=== PATIENT | female | born 1965 | race Caucasian/White ===

== ENCOUNTER → 2017-11-25 09:35 | Outpatient (CLI) | payer BC, SELFPAY | PROVIDERS: Visit Provider Family Medicine | DX: B00.89 Other herpesviral infection (principal) | CPT/HCPCS: 87070; 87077; 87147; 87205; 87252 ==

== ENCOUNTER 2021-08-18 12:17 | Emergency (ER) | payer BC, SELFPAY ==
[2021-08-18] VITALS (9 sets, daily range): BP systolic 119–163; BP diastolic 70–86; PULSE 70–101; RESP 12–24; TEMP 36.6; O2SAT 94–100; BMI 22.4
--- NOTE | 2021-08-18 12:37 | DI.RAD.S_ITS ---
PROCEDURE: XR CHEST 1V INDICATIONS: chest pain TECHNIQUE: One view of the chest was acquired. COMPARISON: None. FINDINGS: Surgical changes and devices: None. Lungs and pleura: Lungs are clear. No pleural effusions or pneumothorax. Mediastinum: Mediastinal contours appear normal. Heart size is normal. Bones and chest wall: No suspicious bony lesions. Overlying soft tissues appear unremarkable. IMPRESSION: No acute cardiopulmonary abnormality. Dictated by: Froilan Contreras M.D. on 08/18/2021 at 11:59 Approved by: Froilan Contreras M.D. on 08/18/2021 at 11:59
[2021-08-18 13:11] LABS: Alanine Aminotransferase 31 IU/L (<35); Albumin 4.6 g/dL (3.5-5.0); Albumin Globulin Ratio 1.6 (1.0-2.8); Alkaline Phosphatase 87 U/L (38-126); Aspartate Aminotransferase 33 IU/L (14-36); BUN Creatinine Ratio 19.1 (6-22); Bilirubin Total 0.8 mg/dL (0.2-1.3); Blood Urea Nitrogen 13 mg/dL (7-17); Calcium 9.3 mg/dL (8.4-10.2); Carbon Dioxide 28 mmol/L (22-32); Chloride 103 mmol/L (98-107); Creatine Kinase 46 U/L (30-135); Estimated Glomerular Filt Rate > 60 mL/min (>60); Globulin 2.9 g/dL (1.7-4.1); Glucose 124 mg/dL (70-100); Lipase 89 U/L (23-300); Magnesium 2.2 mg/dL (1.6-2.3); Potassium 3.8 mmol/L (3.4-5.1); Sodium 138 mmol/L (137-145); Total Protein 7.5 g/dL (6.3-8.2)
[2021-08-18 13:24] LABS: HEMOLYSIS < 15 (0-50); Troponin I < 0.012 ng/mL (0.01-0.034)
[2021-08-18 13:37] LABS: Add Manual Diff / Slide Review NO; Basophils Absolute Auto 0 /uL (0-100); Basophils Percent Auto 0.8 % (0-2); Eosinophils Absolute Auto 100 /uL (0-450); Eosinophils Percent Auto 1.7 % (2-4); Hematocrit 40.7 % (36-46); Lymphocytes Absolute Auto 1800 /uL (1100-4500); Lymphocytes Percent Auto 30.8 % (25-40); Mean Corpuscular HGB Conc 34.4 % (30-36); Mean Corpuscular Hemoglobin 31.2 PG (26-34); Mean Corpuscular Volume 90.7 fL (80-100); Monocytes Absolute Auto 400 /uL (0-900); Monocytes Percent Auto 6.4 % (3-14); Neutrophils Absolute Auto 3500 /uL (1500-7000); Neutrophils Percent Auto 60.3 % (50-75); Platelet Count 365 X10^3/uL (150-400); Red Blood Cell Count 4.49 X10^6/uL (4.0-5.2); Red Cell Distribution Width 13.4 % (11.6-14.8); White Blood Cell Count 5.9 X10^3/uL (4.5-11.0)
[2021-08-18 14:04] LABS: COVID19 -Nasal RAPID Negative (Negative)
--- NOTE | 2021-08-18 14:23 | ED_ITS ---
HPI - Chest Pain <STERLING Velazquez - Last Filed: 08/18/21 15:21> General Chief Complaint: Chest Pain Stated Complaint: Sharp Pain, Chest Lt Side Time Seen by Provider: 08/18/21 13:57 Source: patient and family Mode of arrival: Family Vehicle Limitations: no limitations History of Present Illness HPI narrative: 56-year-old nonsmoker presents to the emergency department with complaints left chest pain that radiates to left shoulder intermittently over the last couple of hours. She reports that she felt a little clammy when the pain began but has subsided. Each episode lasted for a short amount of time but returned. Patient denies any history cardiac issues. 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 Patient reports bilateral shooting pains down her arms intermittently while sleeping. Patient denies any trauma to her chest neck or back. Related Data Home Medications Medication Instructions Recorded Confirmed ibuprofen 200 mg capsule (Advil 200 mg PO ##0 04/07/16 Liqui-Gel) estradiol 0.5 mg tablet 0.5 mg PO DAILY 11/25/17 11/25/17 Previous Rx's Medication Instructions Recorded acyclovir 800 mg tablet 800 mg PO 5XD #50 tabs 11/25/17 cephalexin 500 mg capsule (Keflex) 500 mg PO TID #15 caps 11/25/17 methocarbamol 500 mg tablet 500 mg PO QID PRN Neck pain #14 08/18/21 tabs Allergies Allergy/AdvReac Type Severity Reaction Status Date / Time penicillin G Allergy Rash Verified 11/25/17 08:56 Review of Systems <STERLING Velazquez - Last Filed: 08/18/21 15:21> Review of Systems Narrative: Narrative: GENERAL: Denies chills, fatigue, fever, sweats. HEENT: Denies sinus pain, ear pain, sore throat, difficulty swallowing, dizziness. RESPIRATORY: Denies dyspnea, cough, wheezing, sputum. CARDIOVASCULAR: Denies palpitations, edema. GASTROINTESTINAL: Denies nausea, vomiting, abdominal pain, diarrhea, constipation. : Denies dysuria, frequency, incontinence, hematuria, urinary retention, flank pain. MUSCULOSKELETAL: Denies weakness, joint pain, or bony pain. SKIN: Denies rash, skin lesions, or pruritis. NEUROLOGIC: Denies weakness, dizziness, headache, numbness. PSYCHIATRIC: No concerning psychosocial issues. Patient History <STERLING Velazquez - Last Filed: 08/18/21 15:21> Social History Smoking Status: Never smoker Smoking Status: Never smoker Exam <STERLING Velazquez - Last Filed: 08/18/21 15:21> Narrative Exam Narrative: Exam Narrative: GENERAL: This is a well-nourished, well-developed patient, in no acute distress HEAD: Atraumatic. Normocephalic. EYES: Pupils equal round and reactive. Extraocular motions intact. No injection or drainage. ENT: Nose without bleeding, purulent drainage. Airway patent. NECK: Trachea midline. No JVD or lymphadenopathy. Tension noted. Positive Spurling's to left arm with head tilted to right. CARDIOVASCULAR: Regular rate and rhythm, peripheral pulses intact, cap refill <2 sec. RESPIRATORY: Breath sounds equal and clear bilaterally. No wheezes, rales, or rhonchi. No cough. No increased respiratory effort. No accessory muscle use. GASTROINTESTINAL: Abdomen soft, non-tender, nondistended without guarding or rebound. No suprapubic pain. No hepato-splenomegaly, or palpable masses. EXTREMITIES: Normal range of motion, no clubbing or edema. Neurovascularly intact. Patient is very tense in her neck and upper shoulder region. NEURO: A&O x 3. SKIN: Warm, dry, no rashes or lesions noted. Initial Vital Signs Initial Vital Signs: Vital Signs Pulse Rate 101 H 08/18/21 12:27 Respiratory Rate 19 08/18/21 12:27 Blood Pressure 163/82 H 08/18/21 12:27 Pulse Oximetry 94 08/18/21 12:27 Reviewed <Emely Parker DO - Last Filed: 08/20/21 13:23> Initial Vital Signs Initial Vital Signs: Vital Signs Pulse Rate 101 H 08/18/21 12:27 Respiratory Rate 19 08/18/21 12:27 Blood Pressure 163/82 H 08/18/21 12:27 Pulse Oximetry 94 08/18/21 12:27 Course <STERLING Velazquez - Last Filed: 08/18/21 15:21> Orders Ordered: ED Orders 08/18/21 12:30 Complete Blood Count AUTO DIFF Stat Comprehensive Metabolic Panel Stat Lipase Stat Magnesium Stat Troponin & CK Cardiac Panel Stat 08/18/21 12:37 XR chest 1V Stat EKG-12 Lead Stat 08/18/21 12:50 COVID19 -Nasal RAPID/Pre-Proc Stat Vital Signs Vital signs: Vital Signs - 8 hr 08/18/21 12:32 08/18/21 12:27 08/18/21 12:27 Temperature 97.8 F Pulse Rate 91 H 101 H Respiratory Rate 18 19 Blood Pressure 147/86 H 163/82 H Pulse Oximetry 99 94 Oxygen Delivery Method Room Air 08/18/21 12:30 08/18/21 12:30 Temperature Pulse Rate 90 Respiratory Rate 17 Blood Pressure 147/86 H Pulse Oximetry 100 Oxygen Delivery Method <Emely Parker DO - Last Filed: 08/20/21 13:23> Orders Ordered: ED Orders 08/18/21 12:30 Complete Blood Count AUTO DIFF Stat Comprehensive Metabolic Panel Stat Lipase Stat Magnesium Stat Troponin & CK Cardiac Panel Stat 08/18/21 12:37 XR chest 1V Stat EKG-12 Lead Stat 08/18/21 12:50 COVID19 -Nasal RAPID/Pre-Proc Stat Vital Signs Vital signs: Vital Signs - 8 hr 08/18/21 12:32 08/18/21 12:27 08/18/21 12:27 Temperature 97.8 F Pulse Rate 91 H 101 H Respiratory Rate 18 19 Blood Pressure 147/86 H 163/82 H Pulse Oximetry 99 94 Oxygen Delivery Method Room Air 08/18/21 12:30 08/18/21 12:30 Temperature Pulse Rate 90 Respiratory Rate 17 Blood Pressure 147/86 H Pulse Oximetry 100 Oxygen Delivery Method MDM - Chest Pain <STERLING Velazquez - Last Filed: 08/18/21 15:21> Differential Diagnosis Differential diagnosis: Likely atypical chest pain; Unlikely pneumothorax, unstable angina pectoris or costochondritis Lab Data Result diagrams: 08/18/21 12:30 08/18/21 12:30 Labs: Lab Results 08/18/21 08/18/21 08/18/21 Range/Units 12:30 12:30 12:50 WBC 5.9 (4.5-11.0) X10^3/uL RBC 4.49 (4.0-5.2) X10^6/uL Hgb 14.0 (12.0-16.0) g/dL Hct 40.7 (36-46) % MCV 90.7 (80-100) fL MCH 31.2 (26-34) PG MCHC 34.4 (30-36) % RDW 13.4 (11.6-14.8) % Plt Count 365 (150-400) X10^3/uL Neut % (Auto) 60.3 (50-75) % Lymph % (Auto) 30.8 (25-40) % [place] % (Auto) 6.4 (3-14) % Eos % (Auto) 1.7 L (2-4) % Baso % (Auto) 0.8 (0-2) % Neut # (Auto) 3500 (2164-6531) /uL Lymph # (Auto) 1800 (1279-0471) /uL [place] # (Auto) 400 (0-900) /uL Eos # (Auto) 100 (0-450) /uL Baso # (Auto) 0 (0-100) /uL Sodium 138 (137-145) mmol/L Potassium 3.8 (3.4-5.1) mmol/L Chloride 103 (98-107) mmol/L Carbon Dioxide 28 (22-32) mmol/L BUN 13 (7-17) mg/dL Creatinine 0.68 (0.52-1.04) mg/dL Estimated GFR > 60 (>60) mL/min BUN/Creatinine Ratio 19.1 (6-22) Glucose 124 H (70-100) mg/dL Calcium 9.3 (8.4-10.2) mg/dL Magnesium 2.2 (1.6-2.3) mg/dL Total Bilirubin 0.8 (0.2-1.3) mg/dL AST 33 (14-36) IU/L ALT 31 (<35) IU/L Alkaline Phosphatase 87 (38-126) U/L Total Creatine Kinase 46 (30-135) U/L CK-MB (CK-2) TNP CK-MB (CK-2) Rel Index TNP Troponin I < 0.012 (0.01-0.034) ng/mL Total Protein 7.5 (6.3-8.2) g/dL Albumin 4.6 (3.5-5.0) g/dL Globulin 2.9 (1.7-4.1) g/dL Albumin/Globulin Ratio 1.6 (1.0-2.8) Lipase 89 (23-300) U/L SARS-CoV-2 (PCR) Negative (Negative) Imaging Data Chest x-ray: Radiologist's Impression: [address] [address] XRay Report Signed Patient: Essence Velasco MR#: [id number] : 1965 Acct:[id number] Age/Sex: 56 / F Date of Service: 08/18/21 Loc: ED Accession Number: [id number] ?? Procedure: XR chest 1V Ordering Provider: Emely Parker D.O. PROCEDURE:? XR CHEST 1V ? INDICATIONS:? chest pain ? TECHNIQUE:? One view of the chest was acquired.? ? COMPARISON:? None. ? FINDINGS:? ? Surgical changes and devices:? None.? ? Lungs and pleura:? Lungs are clear.? No pleural effusions or pneumothorax.? ? Mediastinum:? Mediastinal contours appear normal.? Heart size is normal.? ? Bones and chest wall:? No suspicious bony lesions.? Overlying soft tissues appear unremarkable.? ? IMPRESSION:? No acute cardiopulmonary abnormality. ? ? Dictated by: Froilan Contreras M.D. on 08/18/2021 at 11:59 ? ? Approved by: Froilan Contreras M.D. on 08/18/2021 at 11:59 ? ECG Data Attestation: I personally reviewed and interpreted this ECG as follows: Interpretation: NSR with normal rhythm and rate of 78 bpm MDM Narrative Medical decision making narrative: 56-year-old female presenting with atypical chest pain. EKG was normal, chest x-ray was normal, labs were within normal limits. I suspect her symptoms are related to increased stress in her life. Discussed stress reduction activities. Patient is very tense in her shoulders from his stress and is causing intermi ttent arm pain. We will treat with Robaxin to see if this helps relax her shoulders have been to alleviate her arm pain. Discussed return precautions and plan of care with patient and , who were agreeable to course of action. <Emely Parker DO - Last Filed: 08/20/21 13:23> Lab Data Labs: Lab Results 08/18/21 08/18/21 08/18/21 Range/Units 12:30 12:30 12:50 WBC 5.9 (4.5-11.0) X10^3/uL RBC 4.49 (4.0-5.2) X10^6/uL Hgb 14.0 (12.0-16.0) g/dL Hct 40.7 (36-46) % MCV 90.7 (80-100) fL MCH 31.2 (26-34) PG MCHC 34.4 (30-36) % RDW 13.4 (11.6-14.8) % Plt Count 365 (150-400) X10^3/uL Neut % (Auto) 60.3 (50-75) % Lymph % (Auto) 30.8 (25-40) % [place] % (Auto) 6.4 (3-14) % Eos % (Auto) 1.7 L (2-4) % Baso % (Auto) 0.8 (0-2) % Neut # (Auto) 3500 (6660-9127) /uL Lymph # (Auto) 1800 (2491-3921) /uL [place] # (Auto) 400 (0-900) /uL Eos # (Auto) 100 (0-450) /uL Baso # (Auto) 0 (0-100) /uL Sodium 138 (137-145) mmol/L Potassium 3.8 (3.4-5.1) mmol/L Chloride 103 (98-107) mmol/L Carbon Dioxide 28 (22-32) mmol/L BUN 13 (7-17) mg/dL Creatinine 0.68 (0.52-1.04) mg/dL Estimated GFR > 60 (>60) mL/min BUN/Creatinine Ratio 19.1 (6-22) Glucose 124 H (70-100) mg/dL Calcium 9.3 (8.4-10.2) mg/dL Magnesium 2.2 (1.6-2.3) mg/dL Total Bilirubin 0.8 (0.2-1.3) mg/dL AST 33 (14-36) IU/L ALT 31 (<35) IU/L Alkaline Phosphatase 87 (38-126) U/L Total Creatine Kinase 46 (30-135) U/L CK-MB (CK-2) TNP CK-MB (CK-2) Rel Index TNP Troponin I < 0.012 (0.01-0.034) ng/mL Total Protein 7.5 (6.3-8.2) g/dL Albumin 4.6 (3.5-5.0) g/dL Globulin 2.9 (1.7-4.1) g/dL Albumin/Globulin Ratio 1.6 (1.0-2.8) Lipase 89 (23-300) U/L SARS-CoV-2 (PCR) Negative (Negative) Discharge Plan Departure Patient Disposition: Home Clinical Impression: Atypical chest pain Activity Restrictions/Additional Instructions: *You have been diagnosed with atypical chest pain, which means it is not related to your heart. I believe your symptoms are due to your everyday stress from your many duties has a , mother and daughter. Your EKG was normal, your chest x-ray was normal, and all of your labs came back within normal limits. I suspect the pain in your arms is due to the tension in your neck and upper sebastien ulders, from your stress. Please take time for yourself to recover from the stress. I will prescribe a nonsedating muscle relaxer to see if that helps with the tension in your neck and shoulders. Please feel free to have your massage your shoulders or seek professional masseur services. *What to do: *Please continue to take your regular medications as directed. [x ] New medication prescriptions sent to your pharmacy: [[facility] in [place] [ ] New medication written as a paper prescription [ ] No new medications given *Please follow up with your primary care provider in 2-3 days, call for an appointment. Let them know you were seen in the Emergency Department and that we ask that you be seen in follow up. We will electronically transmit a record of today's note if your PCP is in our system *If you do not have a primary care provider please contact the [facility] Resource line at [phone]. They will ask some questions about your medical history and help get you set up with a doctor in the community. ? Return to ER if you should have any new, worsening or concerning symptoms, such as worsening pain, severe headache, confusion, chest pain, difficulty breathing, fever greater than 101 F, shaking chills, persistent vomiting to the point that you cannot drink fluids, or other new or worsening symptoms. Prescriptions: New methocarbamol 500 mg tablet 500 mg PO QID PRN (Reason: Neck pain) Qty: 14 0RF No Action estradiol 0.5 mg tablet 0.5 mg PO DAILY acyclovir 800 mg tablet 800 mg PO 5XD Qty: 50 0RF Rx Instructions: while awake cephalexin [Keflex] 500 mg capsule 500 mg PO TID Qty: 15 0RF ibuprofen [Advil Liqui-Gel] 200 MG capsule 200 mg PO Qty: 0 Referrals: Miscellaneous,Doctor, MD [Primary Care Provider] - Visit Report Forms: Patient Portal/API <Emely Parker DO - Last Filed: 08/20/21 13:23> Cosign ED Attending Lalitaature Attestation: I was immediately available in the department for consultation. Documentation has been reviewed.
== END 2021-08-18 15:45 | disposition home or self-care (01) ==
PROVIDERS: Emergency Medicine; Emergency Provider Registered Nurse
DX: R07.89 Other chest pain (principal); Z20.822 Contact with and (suspected) exposure to COVID-19
CPT/HCPCS: 36415; 71045; 80053; 82550; 83690; 83735; 84484; 85025; 87635; 93005; 93010; 99283; 99284; C9803

== ENCOUNTER → 2022-07-27 11:45 | Outpatient (CLI) | payer BC, SELFPAY ==
--- NOTE | 2022-07-27 11:51 | DI.RAD.S_ITS ---
PROCEDURE: XR FINGER RT MIN 2V INDICATIONS: right middle finger injury TECHNIQUE: AP hand, 2 views of the 3rd finger(s) acquired. COMPARISON: None. FINDINGS: Bones: 3rd distal phalangeal tuft fracture. Normal bone mineralization. No radiopaque foreign bodies Soft tissues: No suspicious soft tissue calcifications. IMPRESSION: Nondisplaced 3rd distal phalangeal tuft fracture Approved by: Eric Garza M.D. on 07/27/2022 at 14:35
== END ==
PROVIDERS: Referring Provider Physician Assistant; Visit Provider Physician Assistant
DX: S62.662A Nondisplaced fracture of distal phalanx of right middle finger, initial encounter for closed fracture (principal); X58.XXXA Exposure to other specified factors, initial encounter
CPT/HCPCS: 73140

== ENCOUNTER → 2022-09-17 11:26 | Outpatient (CLI) | payer BC, SELFPAY ==
--- NOTE | 2022-09-17 | DI.MG.S_ITS ---
BILATERAL DIGITAL SCREENING MAMMOGRAM 3D/2D WITH CAD: 09/17/2022 CLINICAL: Routine screening. Baseline by default. Comparison is made to exams dated: 04/05/2020 mammogram and 09/02/2017 mammogram - outside. Both breasts are heterogeneously dense, which may obscure small masses (category c / 51-75% glandular tissue). Current study was also evaluated with a Computer Aided Detection (CAD) system. No significant masses, calcifications, or other findings are seen in either breast. There has been no significant interval change. IMPRESSION: NEGATIVE There is no mammographic evidence of malignancy. A 1 year screening mammogram is recommended. Based on the Tyrer Cuzick model (a risk assessment model) the patient's lifetime risk is 10.3% and her 10 year risk is 3.6%. According to the ACR, ACS, and NCCN guidelines, an annual breast MRI exam along with mammogram is recommended if the patient's lifetime risk is 20% or greater. This exam was interpreted at Station ID: [id number]. NOTE: For mammograms, a report in lay terms will be sent to the patient. Approximately 15% of breast malignancies will not be visualized mammographically. In the management of a palpable breast mass, a negative mammogram must not discourage biopsy of a clinically suspicious lesion. Electronically Signed By: Remberto bridges/sobia:09/17/2022 21:16:01 letter sent: Normal Exam ACR BI-RADS Category 1: Negative [id number]
== END ==
PROVIDERS: PCP Internal Medicine; Referring Provider Internal Medicine; Visit Provider Internal Medicine
DX: Z12.31 Encounter for screening mammogram for malignant neoplasm of breast (principal)
CPT/HCPCS: 77063; 77067